=== PATIENT | male | born 1990 | race Caucasian/White ===

== ENCOUNTER 2017-01-04 16:38 | Emergency (ER) | payer OTHER ==
[2017-01-04] MEDS ORDERED: Diphtheria,Pertussis(Acell),Tetanus Vaccine 0.5 ML SDV IM ONE (16:51)
[2017-01-04 16:57] VITALS: BP 151/108
--- NOTE | 2017-01-04 17:17 | EDM.PDOC ---
ED HPI GENERAL MEDICAL PROBLEM - General Chief Complaint: Laceration Stated Complaint: LACERATION ON HEAD, [id number] Time Seen by Provider: 01/04/17 17:00 Source of Information: Reports: Patient, RN, RN Notes Reviewed History Limitations: Reports: No Limitations - History of Present Illness INITIAL COMMENTS - FREE TEXT/NARRATIVE: Pt states he was at work and tried to duck under a piece of metal, but did not clear it. States the laceration to the scalp occurred around 11am. He was working out of town. Pt denies any loc. Last tetanus vaccination was 2007 as stated by pt. Onset: Today Onset Date: 01/04/17 Onset Time: 11:00 - Related Data Allergies Allergy/AdvReac Type Severity Reaction Status Date / Time No Known Allergies Allergy Verified 10/19/15 11:52 Home Meds: Home Meds . [No Known Home Meds] 10/19/15 [History] Past Medical History - Past Health History Medical/Surgical History: Denies Medical/Surgical History Social & Family History - Tobacco Use Smoking Status *Q: Never Smoker - Recreational Drug Use Recreational Drug Use: No ED ROS GENERAL - Review of Systems Review Of Systems: ROS reveals no pertinent complaints other than HPI. ED EXAM, SKIN/RASH Exam: See Below Exam Limited By: No Limitations General Appearance: Alert, WD/WN, No Apparent Distress Eye Exam: Bilateral Eye: Normal Inspection Ears: Normal External Exam, Hearing Grossly Normal Nose: Normal Inspection Throat/Mouth: Normal Inspection, Normal Lips, Normal Voice, No Airway Compromise Head: Normocephalic, Other (4cm scalp laceration) Neck: Normal Inspection, Supple, Non-Tender, Full Range of Motion Respiratory/Chest: No Respiratory Distress, Lungs Clear, Normal Breath Sounds, No Accessory Muscle Use, Chest Non-Tender Cardiovascular: Normal Peripheral Pulses, Regular Rate, Rhythm, No Edema, No Gallop, No JVD, No Murmur, No Rub Peripheral Pulses: 2+: Radial (L), Radial (R) GI/Abdominal: Normal Bowel Sounds, Soft, Non-Tender (Male) Exam: Deferred Rectal (Males) Exam: Deferred Back Exam: Normal Inspection, Full Range of Motion Extremities: Normal Inspection, Normal Range of Motion, Non-Tender, No Pedal Edema, Normal Capillary Refill Neurological: Alert, Oriented, Normal Cognition, Normal Gait, No Motor/Sensory Deficits Psychiatric: Normal Affect, Normal Mood Skin: Warm, Dry, Normal Color, No Rash, Other (4cm scalp laceration) Location, Skin: Head (No active bleeding at this time) Lymphatic: No Adenopathy ED SKIN PROCEDURES - Laceration/Wound Repair Middle Medial Head Appearance: Subcutaneous, Linear Skin Prep: Chlorhexidine (Hibiciens) Exploration/Debridement/Repair: Wound Explored, No Foreign Material Found Closed with: [place] # of Sutures: 6 Drain Placement: No Sterile Dressing Applied: Nurse Tetanus Status Addressed: Yes (tetanus vaccine given) Complications: No Course - Vital Signs Last Recorded V/S: Last Vital Signs Temp 98 F 01/04/17 16:41 Pulse 90 01/04/17 16:41 Resp 16 01/04/17 16:41 BP 151/108 H 01/04/17 16:41 Pulse Ox 100 01/04/17 16:41 - Orders/Labs/Meds Orders: Active Orders 24 hr Category Date Time Status Vaccines to be Administered [RC] PER UNIT ROUTINE Care 01/04/17 16:52 Active Meds: Medications Discontinued Medications Generic Name Dose Route Start Last Admin Trade Name Freq PRN Reason Stop Dose Admin Diphtheria/Tetanus/Acell Pertussis 0.5 ml 01/04/17 16:51 01/04/17 17:00 Adacel IM 01/04/17 16:52 0.5 ml .ONCE ONE Administration Departure - Departure Time of Disposition: 17:14 Disposition: Home, Self-Care 01 Condition: Good Clinical Impression: Scalp laceration Qualifiers: Encounter type: initial encounter Qualified Code(s): S01.01XA - Laceration without foreign body of scalp, initial encounter - Discharge Information Instructions: Laceration Care, Adult, Luud-bu-Sgma, Stitches, Cheng, or Adhesive Wound Closure, [id number] Forms: ED Department Discharge Additional Instructions: Make an appointment at your primary care facility to have cheng removed and wound checked in 7-10 days. May run water over it in the shower, but do not let the wound be wet for long, pat dry after shower. Tylenol or ibuprofen as directed for pain/headache. - My Orders Last 24 Hours: My Active Orders 01/04/17 16:52 Vaccines to be Administered [RC] PER UNIT ROUTINE - Assessment/Plan Last 24 Hours: My Active Orders 01/04/17 16:52 Vaccines to be Administered [RC] PER UNIT ROUTINE
== END 2017-01-04 17:25 | disposition home or self-care (01) ==
LOC: DL.ED 16:38
DX: S01.01XA Laceration without foreign body of scalp, initial encounter (principal); Z23 Encounter for immunization; X58.XXXA Exposure to other specified factors, initial encounter; Y99.0 Civilian activity done for income or pay
CPT/HCPCS: 12002; 90471; 90715; 99282

== ENCOUNTER 2019-05-23 07:53 | Emergency (ER) | payer OTHER, SELFPAY ==
[2019-05-23 08:08] VITALS: BP 137/91; PULSE 96
--- NOTE | 2019-05-23 08:24 | EDM.PDOC ---
ED HPI GENERAL MEDICAL PROBLEM - General Chief Complaint: General Stated Complaint: POSSIBLE INFLUENZA Time Seen by Provider: 05/23/19 08:15 Source of Information: Reports: Patient History Limitations: Reports: No Limitations - History of Present Illness INITIAL COMMENTS - FREE TEXT/NARRATIVE: This 29 yo male patient reports to the ED due to shortness of breath, cough and sore throat. The patient reports he was diagnosed with influenza B on Sunday, but he was feeling worse this morning. The patient reports he was coughing this morning enough that he felt like he was "going to pass out". The patient also reports he has several spots in his left cheek that have been bothering him. Onset: Gradual Duration: Day(s):, Constant, Getting Worse Location: Reports: Generalized Quality: Reports: Other Severity: Moderate Improves with: Reports: None Worsens with: Reports: None Context: Reports: Other Associated Symptoms: Reports: No Other Symptoms Head Pain Score (Numeric/FACES): 6 - Related Data Allergies Allergy/AdvReac Type Severity Reaction Status Date / Time No Known Allergies Allergy Verified 05/23/19 08:05 Home Meds: Home Meds Oseltamivir Phosphate 7 mg PO DAILY 05/23/19 [History] Past Medical History - Past Health History Medical/Surgical History: Denies Medical/Surgical History HEENT History: Reports: Impaired Vision Cardiovascular History: Reports: None Respiratory History: Reports: None Gastrointestinal History: Reports: None Genitourinary History: Reports: None Musculoskeletal History: Reports: None Neurological History: Reports: None Psychiatric History: Reports: None Endocrine/Metabolic History: Reports: None Hematologic History: Reports: None Immunologic History: Reports: None Oncologic (Cancer) History: Reports: None Dermatologic History: Reports: None - Infectious Disease History Infectious Disease History: Reports: None - Past Surgical History Head Surgeries/Procedures: Reports: None Social & Family History - Family History Family Medical History: Noncontributory - Tobacco Use Smoking Status *Q: Never Smoker Second Hand Smoke Exposure: No - Caffeine Use Caffeine Use: Reports: Coffee - Recreational Drug Use Recreational Drug Use: No ED ROS GENERAL - Review of Systems Review Of Systems: Comprehensive ROS is negative, except as noted in HPI. ED EXAM, GENERAL - Physical Exam Exam: See Below Exam Limited By: No Limitations General Appearance: Alert, WD/WN, Mild Distress Eye Exam: Bilateral Eye: EOMI, Normal Inspection, PERRL Ears: Normal External Exam, Normal Canal, Hearing Grossly Normal, Normal TMs Nose: Normal Inspection, Normal Mucosa, No Blood Throat/Mouth: Inflammation (posterior pharynx), Other (right cheek cold sores) Head: Atraumatic, Normocephalic Neck: Normal Inspection, Supple, Non-Tender, Full Range of Motion Respiratory/Chest: No Respiratory Distress, Lungs Clear, Normal Breath Sounds, No Accessory Muscle Use, Chest Non-Tender Cardiovascular: Normal Peripheral Pulses, Regular Rate, Rhythm, No Edema, No Gallop, No JVD, No Murmur, No Rub GI/Abdominal: Normal Bowel Sounds, Soft, Non-Tender, No Organomegaly, No Distention, No Abnormal Bruit, No Mass (Male) Exam: Deferred Rectal (Males) Exam: Deferred Back Exam: Normal Inspection, Full Range of Motion, NT Extremities: Normal Inspection, Normal Range of Motion, Non-Tender, Normal Capillary Refill, No Pedal Edema Neurological: Alert, Oriented, CN II-XII Intact, Normal Cognition, Normal Gait, Normal Reflexes, No Motor/Sensory Deficits Psychiatric: Normal Affect, Normal Mood Skin Exam: Warm, Dry, Intact, Normal Color, No Rash Lymphatic: No Adenopathy Course - Vital Signs Last Recorded V/S: Last Vital Signs Temp 36.7 C 05/23/19 08:05 Pulse 96 05/23/19 08:05 Resp 16 05/23/19 08:05 BP 137/91 H 05/23/19 08:05 Pulse Ox 97 05/23/19 08:05 - Orders/Labs/Meds Orders: Active Orders 24 hr Category Date Time Status CULTURE STREP A CONFIRMATION [RM] Stat Lab 05/23/19 08:16 Results STREP SCRN A RAPID W CULT CONF [RM] Stat Lab 05/23/19 08:17 Ordered Departure - Departure Time of Disposition: 08:43 Disposition: Home, Self-Care 01 Condition: Fair Clinical Impression: Influenza B, Cough - Discharge Information *PRESCRIPTION DRUG MONITORING PROGRAM REVIEWED*: Not Applicable *COPY OF PRESCRIPTION DRUG MONITORING REPORT IN PATIENT ALICIA: Not Applicable Instructions: Cough, Adult, Ryoa-rk-Vbyk, Influenza, Adult, [id number] Forms: ED Department Discharge Care Plan Goals: The patient was advised of the examination and lab results during the visit. The patient was advised to continue to take the Tamiflu as directed. The patient was encouraged to take [id number] medications as directed for temporary symptom relief. If the patient has any additional symptoms or concerns , the patient should either return to the emergency department or visit his primary care facility. Sepsis Event Note - Evaluation Sepsis Screening Result: No Definite Risk - Focused Exam Vital Signs: Vital Signs Temp Pulse Resp BP Pulse Ox 05/23/19 08:05 36.7 C 96 16 137/91 H 97 Date Exam was Performed: 05/23/19 Time Exam was Performed: 08:43 - My Orders Last 24 Hours: My Active Orders 05/23/19 08:16 CULTURE STREP A CONFIRMATION [RM] Stat 05/23/19 08:17 STREP SCRN A RAPID W CULT CONF [RM] Stat - Assessment/Plan Last 24 Hours: My Active Orders 05/23/19 08:16 CULTURE STREP A CONFIRMATION [RM] Stat 05/23/19 08:17 STREP SCRN A RAPID W CULT CONF [RM] Stat
== END 2019-05-23 08:50 | disposition home or self-care (01) ==
LOC: DL.ED 07:53
DX: J10.1 Influenza due to other identified influenza virus with other respiratory manifestations (principal)
CPT/HCPCS: 87081; 87430; 99282; 99283

== ENCOUNTER 2020-09-13 19:55 | Emergency (ER) | payer OTHER, SELFPAY ==
[2020-09-13] MEDS ORDERED: Bacitracin Oint 1 GM U/D Packet TOP ONE (20:34)
[2020-09-13] MEDS ORDERED: Amoxicillin/Clavulanate K 500-125 MG Tab PO ONE (20:34)
--- NOTE | 2020-09-13 20:45 | EDM.PDOC ---
ED HPI GENERAL MEDICAL PROBLEM - General Chief Complaint: Bite:Animal, Insect Stated Complaint: BIT BY A DOG, RIGHT CALF Time Seen by Provider: 09/13/20 20:30 Source of Information: Reports: Patient History Limitations: Reports: No Limitations - History of Present Illness INITIAL COMMENTS - FREE TEXT/NARRATIVE: This 30 yo male patient reports to the ED due to a dog bite to his right lateral calf. The patient reports he was doing some maintenance in an apartment when the dog bit him. The patient was assured by owners that the dog was up to date with immunizations. Onset: Today Duration: Minutes: Location: Reports: Lower Extremity, Right Quality: Reports: Ache Severity: Moderate Improves with: Reports: None Worsens with: Reports: None Context: Reports: Other Associated Symptoms: Reports: No Other Symptoms Right Lower Leg Pain Score (Numeric/FACES): 4 - Related Data Allergies Allergy/AdvReac Type Severity Reaction Status Date / Time No Known Allergies Allergy Verified 09/13/20 20:17 Home Meds: Home Meds Multivitamin 1 tab PO DAILY 09/13/20 [History] [place]-3 Fatty Acids/Fish Oil [Fish Oil 1,000 mg Capsule] 1 tab PO DAILY 09/13/20 [History] lisinopriL [Lisinopril] 10 mg PO DAILY 09/13/20 [History] Past Medical History - Past Health History Medical/Surgical History: Denies Medical/Surgical History HEENT History: Reports: Impaired Vision Cardiovascular History: Reports: Hypertension Respiratory History: Reports: None Gastrointestinal History: Reports: None Genitourinary History: Reports: None Musculoskeletal History: Reports: None Neurological History: Reports: None Psychiatric History: Reports: None Endocrine/Metabolic History: Reports: None Hematologic History: Reports: None Immunologic History: Reports: None Oncologic (Cancer) History: Reports: None Dermatologic History: Reports: None - Infectious Disease History Infectious Disease History: Reports: None - Past Surgical History Head Surgeries/Procedures: Reports: None Social & Family History - Family History Family Medical History: No Pertinent Family History - Tobacco Use Tobacco Use Status *Q: Never Tobacco User Second Hand Smoke Exposure: No - Caffeine Use Caffeine Use: Reports: Soda - Recreational Drug Use Recreational Drug Use: No ED ROS GENERAL - Review of Systems Review Of Systems: Comprehensive ROS is negative, except as noted in HPI. ED EXAM, ANIMAL BITE - Physical Exam Exam: See Below Exam Limited By: No Limitations General Appearance: Alert, WD/WN, Mild Distress Eye Exam: Bilateral Eye: EOMI, Normal Inspection, PERRL Ears: Normal External Exam, Normal Canal, Hearing Grossly Normal, Normal TMs Nose: Normal Inspection, Normal Mucosa, No Blood Throat/Mouth: Normal Inspection, Normal Lips, Normal Teeth, Normal Gums, Normal Oropharynx, Normal Voice, No Airway Compromise Head: Atraumatic, Normocephalic Neck: Normal Inspection, Supple, Non-Tender, Full Range of Motion Respiratory/Chest: No Respiratory Distress, Lungs Clear, Normal Breath Sounds, No Accessory Muscle Use, Chest Non-Tender Cardiovascular: Normal Peripheral Pulses, Regular Rate, Rhythm, No Edema, No Gallop, No JVD, No Murmur, No Rub GI/Abdominal: Normal Bowel Sounds, Soft, Non-Tender, No Organomegaly, No Distention, No Abnormal Bruit, No Mass (Male) Exam: Deferred Rectal (Males) Exam: Deferred Back Exam: Normal Inspection, Full Range of Motion, NT Extremities: Normal Inspection, Normal Range of Motion, Non-Tender, Normal Capillary Refill, No Pedal Edema Neurological: Alert, Oriented, CN II-XII Intact, Normal Cognition, Normal Gait, Normal Reflexes, No Motor/Sensory Deficits Psychiatric: Normal Affect, Normal Mood Skin Exam: Other (superficial lacerations to the right lateral calf with no current bleeding.) Lymphatic: No Adenopathy Course - Vital Signs Last Recorded V/S: Last Vital Signs Temp 100.3 F 09/13/20 20:00 Pulse 118 H 09/13/20 20:00 Resp 18 09/13/20 20:00 BP 162/105 H 09/13/20 20:00 Pulse Ox 99 09/13/20 20:00 - Orders/Labs/Meds Meds: Medications Discontinued Medications Generic Name Dose Route Start Last Admin Trade Name Freq PRN Reason Stop Dose Admin Amoxicillin/Clavulanate Potassium 1 tab 09/13/20 20:34 09/13/20 20:40 Amoxicillin/Clavulanate K 500-125 Mg Tab PO 09/13/20 20:35 1 tab ONETIME ONE Administration Bacitracin 1 dose 09/13/20 20:34 09/13/20 20:40 Bacitracin Oint 1 Gm U/D Packet TOP 09/13/20 20:35 1 dose ONETIME ONE Administration Departure - Departure Time of Disposition: 20:36 Disposition: Home, Self-Care 01 Condition: Fair Clinical Impression: Dog bite of right lower leg Qualifiers: Encounter type: initial encounter Qualified Code(s): S81.851A - Open bite, right lower leg, initial encounter - Discharge Information *PRESCRIPTION DRUG MONITORING PROGRAM REVIEWED*: Not Applicable *COPY OF PRESCRIPTION DRUG MONITORING REPORT IN PATIENT ALICIA: Not Applicable Instructions: Animal Bite, Adult, Opbg-kw-[id number] Forms: ED Department Discharge Care Plan Goals: The patient was advised of the examination results during the visit. The patient's wounds were cleaned and dressed with antibiotic ointment while in the ED. The patient was given an oral dose of Augmentin (500/125) #14 to take 1 by mouth 2 times per day for 7 days. The patient was encouraged to keep the area clean and dry over the next 24 hours. If the patient has any additional symptoms or concerns, the patient should either return to the emergency department or visit his primary care facility. Sepsis Event Note (ED) - Evaluation Sepsis Screening Result: No Definite Risk - Focused Exam Vital Signs: Vital Signs Temp Pulse Resp BP Pulse Ox 09/13/20 20:00 100.3 F 118 H 18 162/105 H 99
[2020-09-13 21:12] VITALS: BP 142/90; PULSE 103
== END 2020-09-13 20:47 | disposition home or self-care (01) ==
LOC: DL.ED 19:55
DX: S81.851A Open bite, right lower leg, initial encounter (principal); W54.0XXA Bitten by dog, initial encounter
CPT/HCPCS: 99283; A9270